=== PATIENT | male | born 1995 | race Caucasian/White ===

== ENCOUNTER 2021-04-09 21:51 | Emergency (ER) | payer SELFPAY ==
[~2021-04-09] VITALS: Ht 175.3 cm; Wt 68.9 kg
[2021-04-09 22:19] VITALS: BP 115/65
--- NOTE | 2021-04-10 00:25 | NUR ---
PT TAKEN TO BED 7
--- NOTE | 2021-04-10 00:50 | NUR ---
RT AT BEDSIDE FOR NEB TREATMEN
[2021-04-10] MEDS ORDERED: HYD1C TP (01:15)
--- NOTE | 2021-04-10 01:20 | NUR ---
Patient discharged with v/s stable. Written and verbal after care instructions given and explained. Patient alert, oriented and verbalized understanding of instructions. Ambulatory with steady gait. All questions addressed prior to discharge. ID band removed. Patient advised to follow up with PMD. Rx of HYDROCORTISONE given. Patient educated on indication of medication including possible reaction and side effects. Opportunity to ask questions provided and answered.
== END 2021-04-10 01:20 | disposition home or self-care (01) ==
LOC: MED 21:51
DX: S40.862A Insect bite (nonvenomous) of left upper arm, initial encounter (principal); F12.90 Cannabis use, unspecified, uncomplicated; Z79.899 Other long term (current) drug therapy; W57.XXXA Bitten or stung by nonvenomous insect and other nonvenomous arthropods, initial encounter; Y93.89 Activity, other specified; Y92.89 Other specified places as the place of occurrence of the external cause; Y99.8 Other external cause status
CPT/HCPCS: 99282